=== PATIENT | male | born 1990 | race African-American/Black ===

== ENCOUNTER 2017-09-24 13:57 | Emergency (ER) | payer SELFPAY ==
[2017-09-24 14:03] VITALS: BP 110/67; PULSE 71; TEMP 98.2; BMI 21.4
[2017-09-24] MEDS ORDERED: IBUPROFEN 600 MG TABLET (FP) PO ONE (15:26)
[2017-09-24] MEDS ORDERED: IBUPROFEN 400 MG TABLET (FP) PO ONE (15:29)
--- NOTE | 2017-09-24 15:31 | PDOC ---
History of Present Illness - General Chief Complaint: Wound Stated Complaint: Toothache Time Seen by Provider: 09/24/17 15:08 History Source: Patient Exam Limitations: No Limitations - History of Present Illness Initial Comments: 09/24/17 15:27 27 yr male with c/o right lower toothache for 2 days has history of poor dentition needs to see the dentist. no fever no chills Past History - Past Medical History Allergies/Adverse Reactions: Allergies Allergy/AdvReac Type Severity Reaction Status Date / Time Penicillins Allergy Verified 09/24/17 14:00 Home Medications: Ambulatory Orders Clindamycin [Cleocin -] 300 mg PO Q6HPO #28 capsule 09/24/17 Ibuprofen 800 mg PO TID PRN #21 tablet 09/24/17 COPD: No Other medical history: denies medical hx - Immunization History Immunization Up to Date: Yes - Suicide/Smoking/Psychosocial Hx Smoking Status: No Smoking History: Current some day smoker Number of Cigarettes Smoked Daily: 2 Information on smoking cessation initiated: No 'Breaking Loose' booklet given: 05/31/14 Hx Alcohol Use: No Drug/Substance Use Hx: Yes Substance Use Type: Marijuana *Physical Exam - Vital Signs Last Vital Signs Temp Pulse Resp BP Pulse Ox 98.2 F 71 18 110/67 99 09/24/17 14:00 09/24/17 14:00 09/24/17 14:00 09/24/17 14:00 09/24/17 14:00 - Physical Exam General Appearance: Yes: Nourished, Appropriately Dressed HEENT: positive: EOMI, VIOLETA, Other (right lower gum with redness surrouding tooth #30 ) Neck: positive: Supple. negative: Tender, Lymphadenopathy (R), Lymphadenopathy (L) Respiratory/Chest: positive: Lungs Clear, Normal Breath Sounds Cardiovascular: positive: Regular Rhythm, Regular Rate Musculoskeletal: positive: Normal Inspection Extremity: positive: Normal Capillary Refill, Normal Inspection, Normal Range of Motion Integumentary: positive: Normal Color, Dry, Warm Neurologic: positive: Fully Oriented, Alert, Normal Mood/Affect, Normal Response , Motor Strength 5/5 Medical Decision Making - Medical Decision Making 09/24/17 15:35 cc: toothache right bottom lower tooth neg fever neg chills, no fluctuance will prescribe clinda and motrin for pain pt states he has a dentist he can see, I have also given him info for urgent care dental pt understands the need for follow up *DC/Admit/Observation/Transfer Diagnosis at time of Disposition: Toothache - Discharge Dispostion Disposition: HOME Condition at time of disposition: Good - Prescriptions Prescriptions: Clindamycin [Cleocin -] 300 mg PO Q6HPO #28 capsule Ibuprofen 800 mg PO TID PRN #21 tablet PRN Reason: Pain - Referrals Referrals: [facility] [Outside] - Patient Instructions Additional Instructions: follow with the dentist as soon as possible gargle with warm salt water 4-5 times a day take the medications as prescribed soft foods only nothing hard to chew - Post Discharge Activity
== END 2017-09-24 15:32 | disposition home or self-care (01) ==
LOC: JERFT 13:57
DX: K08.89 Other specified disorders of teeth and supporting structures (principal)
CPT/HCPCS: 99281-25

== ENCOUNTER 2018-08-26 08:55 | Emergency (ER) | payer OTHER ==
[2018-08-26 09:03] VITALS: BP 126/75; PULSE 79; TEMP 98; BMI 20.9
--- NOTE | 2018-08-26 09:47 | PDOC ---
History of Present Illness - General Stated Complaint: SORE THROAT Time Seen by Provider: 08/26/18 09:36 History Source: Patient Exam Limitations: No Limitations - History of Present Illness Travel History: No Initial Comments: 08/26/18 09:42 28 yr male with sore throat and cough . Pt has history of smoking, no asthma. no fever. Past History - Past Medical History Allergies/Adverse Reactions: Allergies Allergy/AdvReac Type Severity Reaction Status Date / Time Penicillins Allergy Verified 08/26/18 09:03 Home Medications: Ambulatory Orders NK [No Known Home Medication] 08/26/18 COPD: No - Immunization History Immunization Up to Date: Yes - Suicide/Smoking/Psychosocial Hx Smoking Status: No Smoking History: Current every day smoker Have you smoked in the past 12 months: No Number of Cigarettes Smoked Daily: 0 Information on smoking cessation initiated: Yes 'Breaking Loose' booklet given: 08/26/18 Hx Alcohol Use: No Drug/Substance Use Hx: Yes (marijuana) Substance Use Type: None, Marijuana Abd/GI Specific PMHX - Complaint Specific PMHX Colitis: No Diverticulitis: No Review of Systems - Review of Systems Able to Perform ROS?: Yes Is the patient limited Spanish proficient: No Constitutional: No: Symptoms Reported HEENTM: Yes: Symptoms Reported, Throat Pain Respiratory: Yes: Cough *Physical Exam - Vital Signs Last Vital Signs Temp Pulse Resp BP Pulse Ox 98 F 79 19 126/75 99 08/26/18 09:00 08/26/18 09:00 08/26/18 09:00 08/26/18 09:00 08/26/18 09:00 - Physical Exam General Appearance: Yes: Nourished, Appropriately Dressed HEENT: positive: EOMI, VIOLETA. negative: Pharyngeal Erythema, Tonsillar Exudate, Tonsillar Erythema Neck: positive: Supple. negative: Lymphadenopathy (R), Lymphadenopathy (L) Respiratory/Chest: positive: Lungs Clear, Normal Breath Sounds. negative: Crackles, Rales, Rhonchi, Stridor, Wheezing, Hyperresonant Cardiovascular: positive: Regular Rhythm, Regular Rate Medical Decision Making - Medical Decision Making 08/26/18 09:47 cc: cough , sore throat no fever no medical history allergy to PCN 08/26/18 10:13 negative strep *DC/Admit/Observation/Transfer Diagnosis at time of Disposition: Sore throat - Discharge Dispostion Disposition: HOME Condition at time of disposition: Good - Referrals - Patient Instructions Additional Instructions: gargle with warm salt water 4-5 times a day take ibuprofen 600mg every 8hrs for pain (over the counter store brand is fine) tea with honey and lemon, any throat lozenger for sore throat you like follow up with your doctor if any worsening symptoms or return to the ER if worse - Post Discharge Activity
== END 2018-08-26 10:25 | disposition home or self-care (01) ==
LOC: JERFT 08:55
DX: J02.9 Acute pharyngitis, unspecified (principal); F17.210 Nicotine dependence, cigarettes, uncomplicated
CPT/HCPCS: 87070; 87430; 99281-25

== ENCOUNTER 2018-10-05 09:32 | Emergency (ER) | payer OTHER ==
[2018-10-05 09:54] VITALS: BP 114/61; PULSE 79; TEMP 98.4; BMI 19.9
--- NOTE | 2018-10-05 11:23 | PDOC ---
History of Present Illness - General Chief Complaint: Cold Symptoms Stated Complaint: COLD SYMPTOMS Time Seen by Provider: 10/05/18 11:13 - History of Present Illness Initial Comments: 10/05/18 11:22 28-year-old male without comorbidities presents for evaluation of stuffy nose bodyaches and cough 2 days Past History - Past Medical History Allergies/Adverse Reactions: Allergies Allergy/AdvReac Type Severity Reaction Status Date / Time Penicillins Allergy Verified 10/05/18 09:51 Home Medications: Ambulatory Orders NK [No Known Home Medication] 08/26/18 COPD: No - Immunization History Immunization Up to Date: Yes - Suicide/Smoking/Psychosocial Hx Smoking Status: No Smoking History: Current every day smoker Have you smoked in the past 12 months: No Number of Cigarettes Smoked Daily: 0 Information on smoking cessation initiated: No 'Breaking Loose' booklet given: 08/26/18 Hx Alcohol Use: No Drug/Substance Use Hx: Yes Substance Use Type: None, Marijuana Review of Systems - Review of Systems Constitutional: Yes: Chills, Malaise, Night Sweats. No: Fever HEENTM: Yes: Nose Congestion Respiratory: Yes: Cough Musculoskeletal: Yes: Muscle Pain *Physical Exam - Vital Signs Last Vital Signs Temp Pulse Resp BP Pulse Ox 98.4 F 79 18 114/61 97 10/05/18 09:51 10/05/18 09:51 10/05/18 09:51 10/05/18 09:51 10/05/18 09:51 - Physical Exam Comments: 10/05/18 11:23 HEAD: NC/AT EYES: Conjuntiva clear Ears: Canals and TM's normal NOSE: Clear discharge THROAT: Moist mucous membrances, oral pharanx clear, uvula midline NECK: Supple without adenopathy CARDIAC: S1 S2 LUNGS: CTA Full and Equal breath sounds ABDOMEN: Soft NT ND MS: Full ROM in all joints without edema NEUROLOGIC: No gross sensory or motor deficits, NVID SKIN: Normal color and temperature no lesions or rashes Moderate Sedation - Procedure Monitoring Vital Signs: Procedure Monitoring Vital Signs Temperature 98.4 F 10/05/18 09:51 Pulse Rate 79 10/05/18 09:51 Respiratory Rate 18 10/05/18 09:51 Blood Pressure 114/61 10/05/18 09:51 O2 Sat by Pulse Oximetry (%) 97 10/05/18 09:51 *DC/Admit/Observation/Transfer Diagnosis at time of Disposition: Upper respiratory infection, viral - Discharge Dispostion Disposition: HOME Condition at time of disposition: Stable Decision to Admit order: No - Referrals Referrals: Rodriguez Reza MD [Staff Physician] - - Patient Instructions Printed Discharge Instructions: DI for Viral Upper Respiratory Infection -- Adult Additional Instructions: Return to the emergency room should symptoms worsen or go unresolved. Follow-up with primary care physician I recommend a few in one to 2 days for further evaluation and treatment options. - Post Discharge Activity
== END 2018-10-05 12:11 | disposition home or self-care (01) ==
LOC: JERFT 09:32
DX: J06.9 Acute upper respiratory infection, unspecified (principal); B97.89 Other viral agents as the cause of diseases classified elsewhere; F17.210 Nicotine dependence, cigarettes, uncomplicated
CPT/HCPCS: 87804; 99281-25

== ENCOUNTER 2018-12-23 09:29 | Emergency (ER) | payer SELFPAY ==
[2018-12-23 09:39] VITALS: BP 108/76; PULSE 78; TEMP 97.9; BMI 20.9
--- NOTE | 2018-12-23 10:16 | PDOC ---
History of Present Illness - General Chief Complaint: Sore Throat Stated Complaint: FEVER Time Seen by Provider: 12/23/18 09:52 History Source: Patient Exam Limitations: No Limitations - History of Present Illness Initial Comments: 12/23/18 10:14 Patient came to ER for evaluation of acute onset of fevers, chills, sore throat pain, moist nonproductive cough and general body aches. States took Tylenol last night but is progressively worsened. Timing/Duration: reports: just prior to arrival Severity: reports: mild Past History - Travel Traveled outside of the country in the last 30 days: No Close contact w/someone who was outside of country & ill: No - Past Medical History Allergies/Adverse Reactions: Allergies Allergy/AdvReac Type Severity Reaction Status Date / Time Penicillins Allergy Verified 12/23/18 09:32 Home Medications: Ambulatory Orders Oseltamivir Phosphate [Tamiflu -] 75 mg PO BID #10 capsule 12/23/18 COPD: No - Immunization History Immunization Up to Date: Yes - Suicide/Smoking/Psychosocial Hx Smoking Status: No Smoking History: Current every day smoker Have you smoked in the past 12 months: No Number of Cigarettes Smoked Daily: 6 Information on smoking cessation initiated: No 'Breaking Loose' booklet given: 08/26/18 Hx Alcohol Use: No Drug/Substance Use Hx: No Substance Use Type: None, Marijuana Review of Systems - Review of Systems Able to Perform ROS?: Yes Is the patient limited [place] proficient: Yes Constitutional: Yes: Symptoms Reported, See HPI, Fever, Malaise HEENTM: Yes: Symptoms Reported, See HPI, Nose Congestion, Throat Pain, Difficulty Swallowing Respiratory: Yes: See HPI, Cough (non productive ) Musculoskeletal: Yes: Symptoms Reported, See HPI, Muscle Pain Integumentary: Yes: Symptoms Reported All Other Systems: Reviewed and Negative *Physical Exam - Vital Signs Last Vital Signs Temp Pulse Resp BP Pulse Ox 97.9 F 78 18 108/76 97 12/23/18 09:32 12/23/18 09:32 12/23/18 09:32 12/23/18 09:32 12/23/18 09:32 - Physical Exam Comments: 12/23/18 10:16 GENERAL: [ The pateint is awake, alert, and appropriately interactive.] EYES: [The pupils are equal, round, and reactive to light, with clear, conjunctiva.but glassy] NOSE: [The nose with clear drainage EARS: [The ear canals and tympanic membranes are congested but landmarks easily visualed ] THROAT: [The oropharynx is clear with erythema, no exudates. The mucous membranes are moist.] NECK: [The neck is supple with mildly tender adenopathy, no menigemous] CHEST: [The lungs are coarse but clear without crackles, or wheezes.] HEART: [Heart is regular rhythm, with normal S1 and S2, no murmurs.] ABDOMEN: [The abdomen is soft and nontender with normal bowel sounds. There is no organomegaly and no mass. There is no guarding or rebound.] EXTREMITIES: [Extremities are normal.] NEURO: [Behavior is normal for age.cranky but easily, Tone is normal.] SKIN: [Skin is unremarkable without rash or swelling. There is no bruising, and there are no other signs of injury.] Moderate Sedation - Procedure Monitoring Vital Signs: Procedure Monitoring Vital Signs Temperature 97.9 F 12/23/18 09:32 Pulse Rate 78 12/23/18 09:32 Respiratory Rate 18 12/23/18 09:32 Blood Pressure 108/76 12/23/18 09:32 O2 Sat by Pulse Oximetry (%) 97 12/23/18 09:32 Progress Note - Progress Note Progress Note: Upper respiratory infection, probable influenza as all evidence *DC/Admit/Observation/Transfer Diagnosis at time of Disposition: Influenzal acute upper respiratory infection - Discharge Dispostion Disposition: HOME Condition at time of disposition: Stable Decision to Admit order: No - Referrals - Patient Instructions Printed Discharge Instructions: DI for Viral Upper Respiratory Infection -- Adult Additional Instructions: Rest, drink lots of fluids: Teas, water, soups, Pedialyte Saltwater gargles Steamy showers/seem to face break up mucus Old-fashioned treatments help! Avoid contact with others until fevers and cough resolved as this is very contagious Lots of handwashing and good hygiene Continue [id number] medications for symptomatic relief Tylenol or Motrin for fever and pain Take all of Tamiflu as directed: 1 tab every 12 hours for 5 days Followup with private physician in one to 2 days as needed or if worsening Return to emergency department for worsened symptoms, fevers, dehydration Influenza takes between 5 and 7 days for resolution To not participate in any activity, work, or school until fevers and cough are gone for at least one day - Post Discharge Activity Forms/Work/School Notes: Back to Work
== END 2018-12-23 10:18 | disposition home or self-care (01) ==
LOC: JERFT 09:29
DX: J11.1 Influenza due to unidentified influenza virus with other respiratory manifestations (principal); F17.210 Nicotine dependence, cigarettes, uncomplicated
CPT/HCPCS: 99281-25

== ENCOUNTER 2019-07-11 10:16 | Emergency (ER) | payer OTHER ==
[2019-07-11 10:47] VITALS: BP 117/67; PULSE 72; TEMP 98.3; BMI 19.6
[2019-07-11] MEDS ORDERED: ERYTHROMYCIN 0.5% OPHTHALMIC OINTMENT 3.5 GM TUBE OS ONE (12:28)
--- NOTE | 2019-07-11 12:29 | PDOC ---
History of Present Illness - General Chief Complaint: Eye Problem Stated Complaint: LT EYE PAIN Time Seen by Provider: 07/11/19 11:16 History Source: Patient Exam Limitations: No Limitations - History of Present Illness Initial Comments: 07/11/19 12:31 HISTORY OF PRESENT ILLNESS: This a 28-year-old male denies medical history presents emergency department for evaluation of swelling to his left upper eyelid which she noticed this morning. Patient reports having occasional tearing over the past 2 days but denies any pain or visual disturbances. Patient reports he feels something in his eye but does not have a tayler sensation to it. No recent travel or sick contacts. PAST MEDICAL HISTORY: Denies past medical history SURGICAL HISTORY: Denies ALLERGIES: PCN REVIEW OF SYSTEMS General/Constitutional: Denies fever or chills. Denies weakness, weight change. HEENT: see HPI Cardiovascular: Denies chest pain or shortness of breath. Respiratory: Denies cough, wheezing, or hemoptysis. Gastrointestinal: Denies nausea, vomiting, diarrhea or constipation. Denies rectal bleeding. Genitourinary: Denies dysuria, frequency, or change in urination. Musculoskeletal: Denies joint or muscle swelling or pain. Denies neck or back pain. Skin and breasts: Denies rash or easy bruising. Neurologic: Denies headache, vertigo, loss of consciousness, or loss of sensation. Psychiatric: Denies depression or anxiety. Endocrine: Denies increased thirst. Denies abnormal weight change. Hematologic/Lymphatic: Denies anemia, easy bleeding, or history of blood clots. Allergic/Immunologic: Denies hives or skin allergy. Denies latex allergy. PHYSICAL EXAM General Appearance: Well-appearing, appropriately dressed. No apparent distress , no intoxication. HEENT: EOMI, PERRLA, normal ENT inspection, normal voice, TMs normal, pharynx normal. No conjunctival pallor. No photophobia, scleral icterus. Firm non- tender palpable mass present to inner surface of left upper eyelid. 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 Fully oriented, alert. Appropriate mood/affect. Motor strength 5/5. No appreciable EOM palsy, facial droop or sensory deficit. Past History - Past Medical History Allergies/Adverse Reactions: Allergies Allergy/AdvReac Type Severity Reaction Status Date / Time Penicillins Allergy Verified 07/11/19 10:47 Home Medications: Ambulatory Orders Oseltamivir Phosphate [Tamiflu -] 75 mg PO BID #10 capsule 12/23/18 COPD: No - Immunization History Immunization Up to Date: Yes - Suicide/Smoking/Psychosocial Hx Smoking Status: No Smoking History: Never smoked Have you smoked in the past 12 months: No Number of Cigarettes Smoked Daily: 6 Information on smoking cessation initiated: No 'Breaking Loose' booklet given: 08/26/18 Hx Alcohol Use: No Drug/Substance Use Hx: No Substance Use Type: None, Marijuana *Physical Exam - Vital Signs Last Vital Signs Temp Pulse Resp BP Pulse Ox 98.3 F 72 19 117/67 97 07/11/19 10:44 07/11/19 10:44 07/11/19 10:44 07/11/19 10:44 07/11/19 10:44 Medical Decision Making - Medical Decision Making 07/11/19 12:29 A/P: 28-year-old male with chalazion of the left upper eyelid EYE EXAMINATION: Visual acuity: 20/20 in the left eye, 20/20 in the right eye, near, uncorrected The lashes are normal. Left upper eyelid with firm nontender mass present to inner surface of eyelid. Extraocular movements are intact. The conjunctiva is clear without erythema, injection, or discharge The corneal surface is normal post tetracaine and fluorescein. There is no corneal abrasion or foreign body. There is no abnormal fluorescein uptake. The pupils are equal, round and reactive to light. The fundus shows normal vessels and normal discs. Discharge home Portions of this note have been documented using voice recognition software. As a result, errors may occur in the wafer mounter process. Effort has been made to correct all grammatical and wafer mounter error, but some may have been missed. *DC/Admit/Observation/Transfer Diagnosis at time of Disposition: Chalazion left upper eyelid - Discharge Dispostion Disposition: HOME Condition at time of disposition: Stable Decision to Admit order: No - Referrals - Patient Instructions Printed Discharge Instructions: DI for Chalazion Additional Instructions: Return to ED for any concerns. - Post Discharge Activity
[2019-07-11] MEDS ORDERED: ERYTHROMYCIN 0.5% OPHTHALMIC OINTMENT 3.5 GM TUBE ONE (12:31)
== END 2019-07-11 12:34 | disposition home or self-care (01) ==
LOC: JERFT 10:16
DX: H00.14 Chalazion left upper eyelid (principal)
CPT/HCPCS: 99281-25

== ENCOUNTER 2021-04-08 12:26 | Emergency (ER) | payer SELFPAY ==
[2021-04-08 12:32] VITALS: TEMP 97.7; BMI 22.3
[2021-04-08 13:24] VITALS: BP 116/80; PULSE 76
== END 2021-04-08 13:24 | disposition home or self-care (01) ==
LOC: JER 12:26
DX: L24.2 Irritant contact dermatitis due to solvents (principal); Z77.29 Contact with and (suspected) exposure to other hazardous substances
CPT/HCPCS: 99281-25

== ENCOUNTER 2023-09-23 17:56 | Emergency (ER) | payer SELFPAY ==
[2023-09-23 18:09] VITALS: BP 120/77; PULSE 81; RESP 18; TEMP 98.2; BMI 20.9
== END 2023-09-23 19:55 | disposition home or self-care (01) ==
LOC: JERFT 17:56
DX: R05.9 Cough, unspecified (principal); J06.9 Acute upper respiratory infection, unspecified; Z20.822 Contact with and (suspected) exposure to COVID-19
CPT/HCPCS: 0241U-QW; 71046-TC-FY; 99284-25